=== PATIENT | female | born 1980 | race Hispanic/Latino ===

== ENCOUNTER → 2018-12-26 | Outpatient (CLI) | payer OTHER ==
--- NOTE | 2018-12-27 08:53 | Diagnostic Imaging Report ---
#[id number] - MGDXBIL #BILATERAL FIRST EVER DIGITAL DIAGNOSTIC MAMMOGRAM WITH CAD: 12/26/2018 No prior exams were available for comparison. Current study contains 6 films. The tissue of both breasts is extremely dense, which lowers the sensitivity of mammography. Current study was also evaluated with a Computer Aided Detection (CAD) system. There is a palpable mass marker on the left breast with an adjacent small nodule. Benign appearing calcification in both breasts is noted. No significant masses, calcifications, or other findings are seen in either breast. IMPRESSION: INCOMPLETE: NEEDS ADDITIONAL IMAGING EVALUATION Palpable mass marker on the left breast with an adjacent small nodule is indeterminate. Focused ultrasound is recommended and will be performed today following this study. Jimbo Gee Jr., D.O. cw/:12/26/2018 14:49:00 Emergency Room Technician: Maria M BROWN(R)(M), [facility] letter sent: Comparison Films Needed Mammogram BI-RADS: 0 Indeterminate
--- NOTE | 2018-12-27 08:53 | Diagnostic Imaging Report ---
#[id number] - USBRELIMLT ULTRASOUND OF THE LEFT BREAST : 12/26/2018 Comparison is made to exam dated: 12/26/2018 mammogram - [facility]. Focused color flow and real-time ultrasound were performed on the left breast at the area of the palpable abnormality at 11 o'clock. There is a benign appearing hypechoic nodule at 11 o'clock 8 cm from the nipple measuring 3 x 1 x 3 mm. IMPRESSION: PROBABLY BENIGN - FOLLOW-UP RECOMMENDED Benign appearing nodule as described above. A follow-up ultrasound in 6 months is recommended to demonstrate stability. The patient was notified of the need for followup. Jimbo Gee Jr., D.O. cw/:12/26/2018 15:30:42 Closing Machine Operator: ROBERTO CARLOS HYATT RDMS, [facility] letter sent: Followup Recommended Ultrasound BI-RADS: 3 Probably benign
== END ==
LOC: MAMMO 10:37
PROVIDERS: ATTEND Obstetrics & Gynecology
DX: N63.20 Unspecified lump in the left breast, unspecified quadrant (principal)
CPT/HCPCS: 77066

== ENCOUNTER → 2019-07-16 | Outpatient (CLI) | payer OTHER ==
--- NOTE | 2019-07-17 09:17 | Diagnostic Imaging Report ---
#[id number] - USBRELIMLT ULTRASOUND OF THE LEFT BREAST : 07/16/2019 Comparison is made to exams dated: 12/26/2018 ultrasound and 12/26/2018 mammogram - [facility]. Real-time ultrasound was performed on the left breast. There are no solid or cystic masses identified. Prior small lesion/cyst has resolved. IMPRESSION: BENIGN There is no sonographic evidence of malignancy. A 1 year screening mammogram is recommended. PUNEET LINDSEY M.D. ct/penrad:07/16/2019 14:30:16 Scientific Writer: Kapil Leija [facility], [facility] letter sent: Normal Exam Ultrasound BI-RADS: 2 Benign
== END ==
LOC: US 11:59
PROVIDERS: ATTEND Obstetrics & Gynecology
DX: N63.20 Unspecified lump in the left breast, unspecified quadrant (principal)

== ENCOUNTER → 2020-09-07 | Outpatient (CLI) | payer OTHER | LOC: MAMMO 08:09 | PROVIDERS: ATTEND Obstetrics & Gynecology | DX: Z12.31 Encounter for screening mammogram for malignant neoplasm of breast (principal) | CPT/HCPCS: 77067 ==

== ENCOUNTER → 2022-06-17 | Day surgery (SDC) | payer OTHER ==
[~2022-06-17] MED LIST: LIDOCAINE HCL 2% LOCAL INJ 5 ML SDV VIAL INJ ONE; METOCLOPRAMIDE HCL 10 MG/2ML VIAL ONE; MIDAZOLAM HCL 2 MG/2 ML VIAL ONE; PROPOFOL IV EMULSION 10 MG/ML 20 ML VIAL ONE
[2022-06-17 17:00] VITALS: BP 123/76
== END | disposition home or self-care (01) ==
LOC: OR 15:14
PROVIDERS: ATTEND Internal Medicine Gastroenterology
DX: K29.60 Other gastritis without bleeding (principal); K20.90 Esophagitis, unspecified without bleeding; Z71.3 Dietary counseling and surveillance; R42 Dizziness and giddiness
CPT/HCPCS: 43239; 81025; C9113; J2001; J2250; J2704; J2765